=== PATIENT | female | born 1960 | race Caucasian/White ===

== ENCOUNTER 2018-03-21 16:37 | Outpatient (CLI) | payer OTHER, MEDICARE ==
--- NOTE | 2018-03-21 23:52 | XRAY Report ---
Reason: ASTHMA,CHRONIC OBSTRUCTIVE NOS Procedure Date: 03/21/2018 Accession Number: [id number] / [id number] Procedure: XR - Chest 2 View X-Ray CPT Code: 70310 FULL RESULT: EXAM: CHEST RADIOGRAPHY EXAM DATE: 03/21/2018 05:03 PM. CLINICAL HISTORY: ASTHMA,CHRONIC OBSTRUCTIVE NOS. COMPARISON: None. TECHNIQUE: 2 views. FINDINGS: Lungs/Pleura: No focal opacities evident. No pleural effusion. No pneumothorax. Normal volumes. Mediastinum: Heart and mediastinal contours are unremarkable. Other: Thoracolumbar hardware. Left shoulder hardware. Cervical spine hardware. IMPRESSION: No acute cardiopulmonary disease seen. RADIA
== END 2018-03-21 16:38 | disposition home or self-care (01) ==
LOC: DI 16:37
PROVIDERS: ATTEND Registered Nurse
DX: J44.9 Chronic obstructive pulmonary disease, unspecified (principal)
CPT/HCPCS: 71046

== ENCOUNTER 2018-05-11 13:18 | Outpatient (CLI) | payer OTHER, MEDICARE | END 2018-05-11 13:19 | disposition home or self-care (01) | LOC: RT 13:18 | PROVIDERS: ATTEND Registered Nurse | DX: J45.901 Unspecified asthma with (acute) exacerbation (principal) | CPT/HCPCS: 94010; 94664 ==

== ENCOUNTER 2018-06-12 16:55 | Emergency (ER) | payer OTHER, MEDICARE ==
[2018-06-12] MEDS ORDERED: predniSONE 20 MG TABLET PO STA (17:38)
[2018-06-12] MEDS ORDERED: IPRATROPIUM/ALBUTEROL 3 ML NEB INH STA (17:38)
--- NOTE | 2018-06-12 17:43 | ED Physician Documentation ---
PD HPI URI - Stated complaint Stated Complaint: SOA/WHEEZING - Chief complaint Chief Complaint: Resp - History obtained from History obtained from: Patient - History of Present Illness Timing details: Gradual onset Pain level max: 0 Pain level now: 0 Associated symptoms: Nasal congestion, Rhinorrhea, Dry cough, Dyspnea (Wheezin g). No: Fever, Chills Contributing factors: COPD / asthma Improves by: Rest, MDI/nebulizer Worsened by: Activity, Breathing Similar symptoms before: Other (States diagnosed with bronchitis and improved with antibiotics) - Additional information Additional information: 57-year-old female states she had a cough for approximately 3 months, improved for a week and now the cough has returned. Review of Systems Constitutional: denies: Fever Throat: denies: Sore throat Cardiac: denies: Chest pain / pressure Respiratory: reports: Cough, Wheezing GI: denies: Vomiting : denies: Dysuria Skin: denies: Rash Musculoskeletal: denies: Neck pain, Back pain Neurologic: denies: Headache PD PAST MEDICAL HISTORY - Past Medical History Past Medical History: Yes Cardiovascular: Hypertension Respiratory: Asthma - Present Medications Home Medications: Ambulatory Orders Medication Instructions Recorded Confirmed Albuterol Sulf [Ventolin Hfa 1 - 2 puffs INH Q4HR PRN 06/12/18 06/12/18 Inhaler] Albuterol Sulf [Ventolin Hfa 1 - 2 puffs INH Q4HR PRN #1 inhaler 06/12/18 Inhaler] Benzonatate [Tessalon Perle] 100 - 200 mg PO TID PRN #30 capsule 06/12/18 Budesonide [Pulmicort] 1 puffs INH BID 06/12/18 06/12/18 Bupropion HCl [Wellbutrin Xl] 450 mg PO DAILY 06/12/18 06/12/18 Metoprolol Succinate 50 mg PO DAILY 06/12/18 06/12/18 Prazosin [Minipress] 1 mg PO DAILY 06/12/18 06/12/18 predniSONE [Deltasone] 10 mg PO [id number] #42 tab 06/12/18 - Allergies Allergies/Adverse Reactions: Allergies Allergy/AdvReac Type Severity Reaction Status Date / Time No Known Drug Allergies Allergy Verified 06/12/18 16:58 - Living Situation Living Situation: reports: With family Living Arrangement: reports: At home - Social History Does the pt smoke?: No Does the pt have substance abuse?: No - Family History Family history: reports: Non contributory PD ED PE NORMAL - Vitals Vital signs reviewed: Yes - General General: Alert and oriented X 3, No acute distress - HEENT HEENT: Ears normal, Moist mucous membranes, Pharynx benign - Neck Neck: Supple, no meningeal sign - Cardiac Cardiac: RRR - Respiratory Respiratory: No respiratory distress, Other (wheezing B) - Abdomen Abdomen: Soft, Non tender, Non distended - Derm Derm: Warm and dry - Extremities Extremities: No edema - Neuro Neuro: Alert and oriented X 3 Results - Vitals Vitals: Vital Signs - 24 hr 06/12/18 06/12/18 06/12/18 16:56 17:59 18:27 Temperature 35.8 C L 37 C Heart Rate 67 74 63 Respiratory 20 18 20 Rate Blood Pressure 185/101 H 167/97 H O2 Saturation 99 97 Oxygen O2 Source Room air - Rads (name of study) cxr Radiology: Prelim report reviewed, EMP read contemporaneously, See rad report (No acute intrathoracic abnormality) PD MEDICAL DECISION MAKING - ED course Complexity details: reviewed results, re-evaluated patient, considered differential, d/w patient ED course: 57-year-old female with what appears to be a viral URI with asthma exacerbation. Will place on steroid taper and albuterol for home. She is well-appearing, nontoxic. Afebrile. No respiratory distress. Patient counseled regarding signs and symptoms for which I believe and urgent re-evaluation would be necessary. Patient with good understanding of and agreement to plan and is comfortable going home at this time This document was made in part using voice recognition software. While efforts are made to proofread this document, sound alike and grammatical errors may occur. Departure - Departure Disposition: Home, Self Care Clinical Impression: Viral URI with cough Condition: Good Instructions: ED Viral Syndrome Follow-Up: Sophia Schmidt ARNP [Primary Care Provider] - Within 1 week Prescriptions: Albuterol Sulf [Ventolin Hfa Inhaler] 1 - 2 puffs INH Q4HR PRN #1 inhaler PRN Reason: Shortness Of Air/Wheezing Benzonatate [Tessalon Perle] 100 - 200 mg PO TID PRN #30 capsule PRN Reason: Cough predniSONE [Deltasone] 10 mg PO [id number] #42 tab Comments: Take the medications as prescribed. Return if you worsen. Follow-up with your doctor for further evaluation and care. Forms: Activity restrictions Discharge Date/Time: 06/12/18 18:34
--- NOTE | 2018-06-12 18:16 | XRAY Report ---
Reason: cough x 3 months Procedure Date: 06/12/2018 Accession Number: [id number] / [id number] Procedure: XR - Chest 2 View X-Ray CPT Code: 07879 FULL RESULT: EXAM: CHEST RADIOGRAPHY EXAM DATE: 06/12/2018 05:57 PM. CLINICAL HISTORY: Cough x 3 months. COMPARISON: CHEST 2 VIEW 03/21/2018 4:55 PM. TECHNIQUE: 2 views. FINDINGS: Lungs/Pleura: No focal opacities evident. No pleural effusion. No pneumothorax. Normal volumes. Mediastinum: Heart and mediastinal contours are unremarkable. Other: Thoracolumbar fusion hardware is in place. IMPRESSION: No acute intrathoracic plain film abnormality. RADIA
[2018-06-12 18:30] VITALS: BP 167/97
== END 2018-06-12 18:34 | disposition home or self-care (01) ==
LOC: ED 16:55
DX: J45.901 Unspecified asthma with (acute) exacerbation (principal); J06.9 Acute upper respiratory infection, unspecified; I10 Essential (primary) hypertension
CPT/HCPCS: 71046; 94640; 99283; J7512

== ENCOUNTER 2018-09-26 14:43 | Outpatient (CLI) | payer OTHER, MEDICARE | END 2018-09-26 14:44 | disposition home or self-care (01) | LOC: RT 14:43 | PROVIDERS: ATTEND Internal Medicine Cardiovascular Disease | DX: I25.10 Atherosclerotic heart disease of native coronary artery without angina pectoris (principal); R07.9 Chest pain, unspecified | CPT/HCPCS: 93005 ==

== ENCOUNTER 2019-04-23 17:56 | Outpatient (CLI) | payer OTHER ==
--- NOTE | 2019-04-24 10:37 | Ultrasound Report ---
Reason: POSTMENOPAUSAL BLEEDING Procedure Date: 04/23/2019 Accession Number: [id number] / [id number] Procedure: US - Pelvic w/Transvaginal CPT Code: Final Report FULL RESULT: EXAM: PELVIC ULTRASOUND EXAM DATE: 04/23/2019 07:00 PM. CLINICAL HISTORY: Postmenopausal bleeding. COMPARISON: None. TECHNIQUE: Realtime transabdominal pelvic scan performed to identify the uterus and adnexa and as an overview of other pelvic structures, followed by transvaginal scan to provide greater detail of the uterus and adnexa, with static image documentation. FINDINGS: Uterus: 5.4 x 2.9 x 4.2 cm, volume 35 cc. Anteverted position. Normal overall size and echotexture. Masses: None. Endometrium: 5 mm. Normal. Cervix: Unremarkable. Right Ovary: 1.6 x 0.9 x 1.6 cm, volume 1.2 cc. Limited visualization as the ovary is seen only transabdominally. Within these limitations, appearance is normal. Left Ovary: 1.7 x 0.8 x 1.8 cm, volume 1.3 cc. Limited transabdominal only visualization, within these limits normal. Free Fluid: None. Other: None. IMPRESSION: Endometrial thickness is within upper limits of normal for the postmenopausal state. No definite abnormal vascularity is detected within the endometrium. RADIA
== END 2019-04-23 17:57 | disposition home or self-care (01) ==
LOC: DI 17:56
PROVIDERS: ATTEND Obstetrics & Gynecology
DX: N95.0 Postmenopausal bleeding (principal)
CPT/HCPCS: 76830; 76856

== ENCOUNTER 2019-05-16 11:08 | Outpatient (CLI) | payer OTHER | END 2019-05-16 11:09 | disposition home or self-care (01) | LOC: RT 11:08 | PROVIDERS: ATTEND Internal Medicine Gastroenterology | DX: I10 Essential (primary) hypertension (principal); E66.9 Obesity, unspecified; I25.10 Atherosclerotic heart disease of native coronary artery without angina pectoris; Z68.34 Body mass index [BMI] 34.0-34.9, adult | CPT/HCPCS: 93005 ==

== ENCOUNTER 2019-07-28 12:19 | Outpatient (CLI) | payer OTHER ==
[2019-07-28] MEDS ORDERED: IOTHALAMATE MEGLUMINE 50 ML VIAL ONE (12:25)
[2019-07-28] MEDS ORDERED: BUFFERED LIDOCAINE 10 ML SYRINGE ONE (12:25)
[2019-07-28] MEDS ORDERED: BUPIVACAINE 0.5% PF 10 ML VIAL IM ONE (13:34)
[2019-07-28] MEDS ORDERED: methylPREDNISolone ACETATE 80 MG/ML VIAL IM ONE (13:34)
[2019-07-28] MEDS ORDERED: IOTHALAMATE MEGLUMINE 50 ML VIAL IVP ONE (13:34)
[2019-07-28] MEDS ORDERED: BUFFERED LIDOCAINE 10 ML SYRINGE IU ONE (13:34)
--- NOTE | 2019-07-28 13:55 | XRAY Report ---
Reason: ADHESIVE CAPSULITIS OF LT SHLDR Procedure Date: 07/28/2019 Accession Number: [id number] / [id number] Procedure: FL - Inj/Aspiration Major Joint CPT Code: Final Report FULL RESULT: EXAM: LEFT SHOULDER Injection with Fluoroscopic Guidance EXAM DATE: 07/28/2019 01:31 PM. CLINICAL HISTORY: ADHESIVE CAPSULITIS OF LT SHLDR. COMPARISON: None. TECHNIQUE: The risks, benefits, and alternatives of the procedure were discussed with the patient. All questions were answered. Written and verbal consent were obtained. The left glenohumeral joint was marked under fluoroscopy and prepped and draped in a sterile manner. Local anesthesia was performed with 1% lidocaine. A 22-gauge needle was then inserted into the joint. Needle placement in the joint space was confirmed with injection of 2 mL of iodinated contrast. A solution containing 4 mL 0.5% ropivacaine, 4 mL 1% lidocaine, and 1 mL (80 mg/mL) Depo-Medrol was then injected. The needle was removed without immediate complication. Other: None. Fluoroscopy Time: 38 seconds. Number of fluoroscopy images: 2. FINDINGS: Bones and joints: No fracture or subluxation. Postsurgical changes consistent with prior labral repair. Injection: Fluoroscopic images demonstrate needle placement and contrast in the left glenohumeral joint. IMPRESSION: Successful fluoroscopically guided injection of anesthetic and steroid in the left glenohumeral joint with significant decrease of the patients pain. RADIA
== END 2019-07-28 12:20 | disposition home or self-care (01) ==
LOC: DI 12:19
PROVIDERS: ATTEND Orthopaedic Surgery Sports Medicine
DX: M75.02 Adhesive capsulitis of left shoulder (principal); M19.012 Primary osteoarthritis, left shoulder
CPT/HCPCS: 20610; Q9961

== ENCOUNTER 2019-09-09 10:21 | Outpatient (CLI) | payer OTHER ==
--- NOTE | 2019-09-10 09:29 | MRI Report ---
Reason: LOW BACK PAIN Procedure Date: 09/09/2019 Accession Number: [id number] / [id number] Procedure: MRI - Lumbar Spine W/O CPT Code: Final Report FULL RESULT: EXAM: MRI LUMBAR SPINE WITHOUT CONTRAST EXAM DATE: 09/09/2019 10:48 AM. CLINICAL HISTORY: Low back pain. COMPARISON: None. TECHNIQUE: Multiplanar, multisequence T1-weighted and fluid-sensitive sequences of the lumbar spine from T12 to S1 without contrast. Other: None. FINDINGS: Spinal Canal: The conus terminates at L1. The conus medullaris and cauda equina are unremarkable. Alignment: Slight reversal of lordosis in the mid to upper lumbar spine. 4 mm posterior subluxation L4 on L5. 5 mm anterior subluxation L5 on S1. Bone Marrow: Five dec-bly-gbyvwhr lumbar vertebral bodies are assumed. No acute fracture identified. There is hardware artifact from what appears to be left lateral vertebral body fusion extending from T12-L4. There appears to be solid osseous fusion of the T12-L4 vertebral bodies. Disk Levels/Facets: T10-T11: Small right paracentral protrusion and mild facet arthropathy. Mild effacement of the thecal sac. Mild right foraminal narrowing. T11-T12: Moderate facet arthropathy. Mild bilateral foraminal narrowing. No central canal stenosis. T12-L1: Fused. No significant stenosis. L1-L2: Fused. No significant stenosis. L2-L3: Fused. No significant stenosis. L3-L4: Fused. No significant stenosis. L4-L5: Retrolisthesis. Mild disk height loss and disk dehydration. Annular disk bulge. Severe degenerative facet arthropathy with ligamentum flavum buckling. Severe central canal stenosis. Severe right and moderate to severe left foraminal stenosis. L5-S1: Grade 1 spondylolisthesis. Severe degenerative facet arthropathy. Annular disk bulge. Annular fissure. Mild central canal stenosis. Mild bilateral foraminal stenosis. Musculature: Mild atrophy of the lower paraspinous musculature. Other: 2 subcentimeter probable left renal cysts. IMPRESSION: 1. L4-L5 severe central canal stenosis. Severe right and moderate to severe left foraminal stenosis. 2. L5-S1 mild bilateral foraminal stenosis. 3. Previous left lateral vertebral body instrumented fusion from T12-L4. Comment: The following findings are so common in adults without low back pain that while we report their presence, they must be interpreted with caution and in the context of the clinical situation. (Reference Michaelk et al, Spine 2001) Prevalence of findings in patients without low back pain: Disk degeneration (any evidence): 92% Disk desiccation/T2 signal loss: 83% Disk height loss: 56% Disk bulge: 64% Disk protrusion: 32% Annular tear/high intensity zone: 38% RADIA
== END 2019-09-09 10:22 | disposition home or self-care (01) ==
LOC: DI 10:21
PROVIDERS: ATTEND Physician Assistant Medical
DX: M51.24 Other intervertebral disc displacement, thoracic region (principal); M47.814 Spondylosis without myelopathy or radiculopathy, thoracic region; M51.36 Other intervertebral disc degeneration, lumbar region; M51.37 Other intervertebral disc degeneration, lumbosacral region; M48.061 Spinal stenosis, lumbar region without neurogenic claudication; M48.07 Spinal stenosis, lumbosacral region; M43.17 Spondylolisthesis, lumbosacral region; M43.16 Spondylolisthesis, lumbar region; M47.817 Spondylosis without myelopathy or radiculopathy, lumbosacral region; M47.816 Spondylosis without myelopathy or radiculopathy, lumbar region
CPT/HCPCS: 72148

== ENCOUNTER 2020-09-26 17:01 | Outpatient (CLI) | payer MEDICARE, MEDICAID | END 2020-09-26 17:02 | disposition critical access hospital (66) | LOC: EMS 17:01 | DX: R20.2 Paresthesia of skin (principal); R42 Dizziness and giddiness; R11.0 Nausea; M54.2 Cervicalgia | CPT/HCPCS: A0425; A0427 ==

== ENCOUNTER 2020-09-26 17:28 | Emergency (ER) | payer MEDICARE, MEDICAID ==
[2020-09-26] MEDS ORDERED: SODIUM CHLORIDE 0.9% 1,000 ML IV STA (18:27)
--- NOTE | 2020-09-26 18:30 | ED Physician Documentation ---
History of Present Illness - Stated complaint Stated Complaint: NECK PX - Chief complaint Chief Complaint: General - History obtained from History obtained from: Patient, EMS - History of Present Illness Timing: Today Pain level max: 0 Pain level now: 0 - Additonal information Additional information: Patient is a 60-year-old female on Adderall and has a history of anxiety as well. She states that she drank a rockstar energy drink this morning followed by several cups of coffee. While she was out in the sun and started to feel shaky and had tingling in her lips, bilateral arms hands and feet. Resolved when EMS arrived. No chest pain. No shortness of breath. Nothing makes it better or worse. Review of Systems Ten Systems: 10 systems reviewed and negative Constitutional: denies: Fever, Chills Nose: denies: Rhinorrhea / runny nose, Congestion Throat: denies: Sore throat Cardiac: reports: Palpitations. denies: Chest pain / pressure Respiratory: denies: Dyspnea, Cough, Wheezing GI: denies: Abdominal Pain, Nausea, Vomiting, Diarrhea : denies: Now EGA Skin: denies: Rash Musculoskeletal: reports: Neck pain (chronic, none now). denies: Back pain Neurologic: denies: Headache, Head injury PD PAST MEDICAL HISTORY - Past Medical History Past Medical History: Yes Cardiovascular: Hypertension, Arrhythmia Respiratory: Asthma, Sleep apnea Neuro: None Endocrine/Autoimmune: None GI: Ulcers, Chronic constipation, Diverticulitis, Other RECEIVER BULK SYSTEM: None : None HEENT: None Psych: Depression, Anxiety Musculoskeletal: Osteoarthritis, Scoliosis, Chronic back pain Derm: None Other Past Medical History: right shoulder rotator cuff repair,. left shoulder with labrium. C6-7 fused. T12-L4 fused. right carpal tunnel. right radial fx. right knee replacement. left with arthroscopy. tubal ligation. - Past Surgical History Past Surgical History: Yes General: Colonoscopy, Other Ortho: Knee replacement, Arthroscopic surgery, Carpal Tunnel surgery, Spine surgery, Other /RECEIVER BULK SYSTEM: Tubal ligation - Present Medications Home Medications: Ambulatory Orders Medication Instructions Recorded Confirmed Albuterol Sulf [Ventolin Hfa 1 - 2 puffs INH Q4HR PRN 06/12/18 09/26/20 Inhaler] Albuterol Sulf [Ventolin Hfa 1 - 2 puffs INH Q4HR PRN #1 inhaler 06/12/18 09/26/20 Inhaler] Prazosin [Minipress] 1 mg PO DAILY 06/12/18 09/26/20 Dextroamphetamine/Amphetamine 30 mg PO DAILY 05/09/19 09/26/20 [Adderall 15 mg Tablet] Losartan/Hydrochlorothiazide 1 tab PO DAILY 09/26/20 09/26/20 [Losartan-Hctz 100-12.5 mg Tab] Potassium Chloride [K-Dur] 20 meq PO BIDWM #6 tablet 09/26/20 - Allergies Allergies/Adverse Reactions: Allergies Allergy/AdvReac Type Severity Reaction Status Date / Time No Known Drug Allergies Allergy Verified 09/26/20 17:49 - Social History Does the pt smoke?: No Smoking Status: Never smoker Does the pt drink ETOH?: Yes Does the pt have substance abuse?: No - Immunizations Immunizations are current?: Yes - POLST Patient has POLST: No PD ED PE NORMAL - Vitals Vital signs reviewed: Yes - General General: Alert and oriented X 3, No acute distress - HEENT HEENT: Moist mucous membranes - Neck Neck: Supple, no meningeal sign - Cardiac Cardiac: RRR, Strong equal pulses - Respiratory Respiratory: No respiratory distress, Clear bilaterally - Abdomen Abdomen: Soft, Non tender, Non distended - Back Back: No spinal TTP - Derm Derm: Warm and dry, No rash - Extremities Extremities: No edema, No calf tenderness / cord - Neuro Neuro: Alert and oriented X 3 - Psych Psych: Normal mood, Normal affect Results - Vitals Vitals: Vital Signs - 24 hr 09/26/20 09/26/20 09/26/20 17:30 17:43 18:37 Temperature 36.1 C L Heart Rate 79 77 77 Respiratory 19 20 16 Rate Blood Pressure 131/113 H 148/108 H 138/95 H O2 Saturation 100 100 97 Oxygen O2 Source Room air - EKG (time done) 1839 Rate: Rate (enter#) (69) Rhythm: NSR [place]: Normal Intervals: Normal PA QRS: Normal Ischemia: Normal ST segments, Q waves (III, aVF) - Labs Labs: Laboratory Tests 09/26/20 09/26/20 18:47 18:47 WBC 6.4 RBC 4.77 Hgb 14.8 Hct 43.6 MCV 91.4 MCH 31.0 MCHC 33.9 RDW 12.0 Plt Count 185 MPV 9.0 Neut # (Auto) 3.4 Lymph # (Auto) 2.2 Bryan # (Auto) 0.7 Eos # (Auto) 0.1 Baso # (Auto) 0.0 Absolute Nucleated RBC 0.00 Nucleated RBC % 0.0 Sodium 137 Potassium 2.8 L Chloride 96 L Carbon Dioxide 27 Anion Gap 14.0 H BUN 17 Creatinine 0.6 Estimated GFR (MDRD) 101 Glucose 97 Calcium 8.8 Phosphorus 2.5 Magnesium 2.2 Total Bilirubin 0.9 AST 27 ALT 35 Alkaline Phosphatase 37 L Total Protein 7.0 Albumin 4.5 Globulin 2.5 Albumin/Globulin Ratio 1.8 PD MEDICAL DECISION MAKING - ED course Complexity details: reviewed results, re-evaluated patient, considered differential, d/w patient ED course: Symptoms resolved in the emergency department. Patient feels much better. Likely a reaction to the caffeine that she ingested earlier today. Also mildly hypokalemic. Given potassium here and will place on potassium for a few days for home. This can be rechecked with her doctor. NIH stroke scale of 0. No focal neurological deficits. Patient is well-appearing, nontoxic. Afebrile. Ambulating without difficulty. Patient counseled regarding signs and symptoms for which I believe and urgent re-evaluation would be necessary. Patient with good understanding of and agreement to plan and is comfortable going home at this time This document was made in part using voice recognition software. While efforts are made to proofread this document, sound alike and grammatical errors may occur. Departure - Departure Disposition: 01 Home, Self Care Clinical Impression: Hypokalemia Caffeine intoxication Qualifiers: Complication of substance-induced condition: uncomplicated Qualified Code(s): F15.920 - Other stimulant use, unspecified with intoxication, uncomplicated Condition: Good Instructions: ED Potassium Deficiency Follow-Up: ANA SHEPHERD PA-C [Primary Care Provider] - Within 1 week Prescriptions: Potassium Chloride [K-Dur] 20 meq PO BIDWM #6 tablet Comments: Your potassium is low today. You should have your potassium level rechecked in 3 to 4 days with your doctor. Return if you worsen. Monitor your caffeine consumption at home as well. Discharge Date/Time: 09/26/20 19:51
[2020-09-26 18:38] VITALS: BP 138/95
[2020-09-26 18:52] LABS: BASOPHILS % (AUTO) 0.3 %; EOSINOPHILS # (AUTO) 0.1 10^3/uL (0.0-0.7); EOSINOPHILS % (AUTO) 1.1 %; HCT - HEMATOCRIT 43.6 % (37.0-47.0); HGB - HEMOGLOBIN 14.8 g/dL (12.0-16.0); LYMPHOCYTES # (AUTO) 2.2 10^3/uL (1.5-3.5); LYMPHOCYTES % (AUTO) 34.5 %; MEAN CORPUSCULAR HGB CONC 33.9 g/dL (32.0-36.0); MEAN CORPUSCULAR VOLUME 91.4 fL (81.0-99.0); MONOCYTES # (AUTO) 0.7 10^3/uL (0.0-1.0); MONOCYTES % (AUTO) 10.8 %; NEUTROPHILS # (AUTO) 3.4 10^3/uL (1.5-6.6); NEUTROPHILS % (AUTO) 53.1 %; PLT - PLATELET COUNT 185 10^3/uL (130-450); RED BLOOD COUNT 4.77 10^6/uL (4.20-5.40); WHITE BLOOD COUNT 6.4 x10^3/uL (4.8-10.8)
[2020-09-26 19:07] LABS: ALBUMIN 4.5 g/dL (3.2-5.5); ALBUMIN/GLOBULIN RATIO 1.8 (1.0-2.2); BILIRUBIN,TOTAL 0.9 mg/dL (0.2-1.0); CALCIUM 8.8 mg/dL (8.5-10.3); CREATININE 0.6 mg/dL (0.4-1.0); MAGNESIUM 2.2 mg/dL (1.7-2.8); PHOSPHORUS 2.5 mg/dL (2.5-4.6); POTASSIUM 2.8 mmol/L (3.5-5.0)
[2020-09-26] MEDS ORDERED: POTASSIUM CHLORIDE 20 MEQ TABLET PO STA (19:13)
== END 2020-09-26 19:51 | disposition home or self-care (01) ==
LOC: EDUNIT# → ED 17:28
DX: F15.920 Other stimulant use, unspecified with intoxication, uncomplicated (principal); E87.6 Hypokalemia; I10 Essential (primary) hypertension
CPT/HCPCS: 36415; 80053; 83735; 84100; 85025; 93005; 96360; 99284; A9270

== ENCOUNTER 2020-11-22 12:50 | Outpatient (CLI) | payer MEDICARE, MEDICAID | END 2020-11-22 12:51 | disposition home or self-care (01) | LOC: LAB.S 12:50 | PROVIDERS: ATTEND Physician Assistant | DX: Z01.812 Encounter for preprocedural laboratory examination (principal); E87.6 Hypokalemia; E66.9 Obesity, unspecified; I25.10 Atherosclerotic heart disease of native coronary artery without angina pectoris; L71.9 Rosacea, unspecified; F41.9 Anxiety disorder, unspecified; F90.9 Attention-deficit hyperactivity disorder, unspecified type; F43.10 Post-traumatic stress disorder, unspecified; I10 Essential (primary) hypertension; F32.9 Major depressive disorder, single episode, unspecified; F51.04 Psychophysiologic insomnia | CPT/HCPCS: 82985; 87640 ==

== ENCOUNTER 2021-01-07 09:04 | Day surgery (SDC) | payer MEDICARE, MEDICAID ==
[2021-01-07] MEDS ORDERED: LACTATED RINGERS 1,000 ML IV ONE ×2 (09:15→11:26)
--- NOTE | 2021-01-07 09:53 | ANESTHESIA ---
Pre-Anesthesia VS, & Labs - Diagnosis hx of colon polyps - Procedure colonoscopy Vital Signs: Temp Pulse Resp BP Pulse Ox 36.2 C L 70 19 168/109 H 99 01/07/21 09:16 01/07/21 09:16 01/07/21 09:16 01/07/21 09:16 01/07/21 09:16 Height: 5 ft 6 in Weight (kg): 88.9 kg Body Mass Index: 31.6 BMI Classification: Obese - NPO >8 hours - Is Patient ?: No - Lab Results Lab results reviewed: Yes Home Medications and Allergies Home Medications: Ambulatory Orders Cyclobenzaprine [Flexeril] 10 mg PO TID PRN 01/05/21 Duloxetine HCl [Cymbalta] 90 mg PO DAILY 01/05/21 Fluticasone Propionate [Flovent Diskus] 2 inh IH BID 01/05/21 Lidocaine Patch 5% [Lidoderm Patch] 1 - 3 each TOP DAILY 01/05/21 Minocycline HCl 100 mg PO DAILY 01/05/21 Nystatin [Mycostatin] 5 ml PO QID 01/05/21 metroNIDAZOLE 0.75% GEL [Flagyl Gel] 1 applic TOP BID 01/05/21 Diclofenac Sodium [Voltaren Arthritis Pain] TOP PRN 01/06/21 Prazosin [Minipress] 1 mg PO DAILY 06/12/18 Dextroamphetamine/Amphetamine [Adderall 15 mg Tablet] 30 mg PO DAILY 05/09/19 Losartan/Hydrochlorothiazide [Losartan-Hctz 100-12.5 mg Tab] 1 tab PO DAILY 09/26/20 Cyclobenzaprine [Flexeril] 10 mg PO TID PRN 01/05/21 Duloxetine HCl [Cymbalta] 90 mg PO DAILY 01/05/21 Fluticasone Propionate [Flovent Diskus] 2 inh IH BID 01/05/21 Lidocaine Patch 5% [Lidoderm Patch] 1 - 3 each TOP DAILY 01/05/21 Minocycline HCl 100 mg PO DAILY 01/05/21 Nystatin [Mycostatin] 5 ml PO QID 01/05/21 metroNIDAZOLE 0.75% GEL [Flagyl Gel] 1 applic TOP BID 01/05/21 Diclofenac Sodium [Voltaren Arthritis Pain] TOP PRN 01/06/21 Allergies/Adverse Reactions: Allergies Allergy/AdvReac Type Severity Reaction Status Date / Time No Known Drug Allergies Allergy Verified 01/06/21 13:40 Anes History & Medical History - Anesthetic History Anesthesia Complications: reports: No previous complications Family history of Anesthesia Complications: Denies Family history of Malignant Hyperthermia: Denies - Medical History Cardiovascular: reports: Hypertension, [place], Arrhythmia Pulmonary: reports: Asthma, Sleep apnea Gastrointestinal: reports: GERD, Ulcers, Colon polyps, Chronic constipation, Ot her Urinary: reports: Retention Neuro: reports: None Musculoskeletal: reports: Osteoarthritis, Scoliosis, Chronic back pain, Other (left shoulder pain) Endocrine/Autoimmune: reports: None Blood Disorders: reports: None Skin: reports: Rosacea Smoking Status: Never smoker - Surgical History General: reports: Colonoscopy, Other Gynecologic: reports: Tubal ligation Orthopedic: reports: Knee replacement, Arthroscopic surgery, Carpal Tunnel surgery, Spine surgery, Other Exam General: Alert, Oriented x3, Cooperative, No acute distress Dental: WNL Mouth Openin Fingerbreadth Neck Mobility: Normal Mallampati classification: II Respiratory: Lungs clear, Normal breath sounds, No respiratory distress, No accessory muscle use Cardiovascular: Regular rate, Normal S1, Normal S2, No murmurs Plan Anesthesia Type: General, Total IV Consent for Procedure(s) Verified and Reviewed: Yes Code Status: Attempt Resuscitation ASA classification: 3-Severe systemic disease Is this case an emergency?: No
[2021-01-07] MEDS ORDERED: MIDAZOLAM 2 MG/2 ML VIAL ONE (09:55)
[2021-01-07] MEDS ORDERED: PROPOFOL 1000 MG/100 ML 1,000 MG/100 ML BOTTLE IV ONE (09:58)
[2021-01-07] MEDS ORDERED: fentaNYL 100 MCG/2 ML VIAL ONE (10:02)
--- NOTE | 2021-01-07 10:35 | HISTORY & PHYSICAL EXAMINATION ---
Chief Complaint - Chief Complaint Chief Complaint: Here for colon cancer surveillance History of Present Illness - History Obtained From Records Reviewed: yes History obtained from: pt Exam Limitations: none - History of Present Illness HPI Comment/Other: Distant history over 10 years ago of colonoscopy and removal polyps. She is here for colon cancer surveillance. 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 : reports: Retention HEENT: reports: Chronic vision loss Psych: reports: Depression, Anxiety, Panic attacks, ADD/ADHD, Post traumatic stress disorder, Claustrophobia Musculoskeletal: reports: Osteoarthritis, Scoliosis, Chronic back pain, Other (left shoulder pain) Derm: reports: Rosacea MRSA Hx?: No - Past Surgical History General: reports: Colonoscopy, Other Ortho: reports: Knee replacement, Arthroscopic surgery, Carpal Tunnel surgery, Spine surgery, Other /BLANKET WINDER OPERATOR: reports: Tubal ligation - POLST Patient has POLST: No Meds/Allgy - Home Medications Home Medications: Ambulatory Orders Medication Instructions Recorded Confirmed Albuterol Sulf [Ventolin Hfa 1 - 2 puffs INH Q4HR PRN #1 inhaler 06/12/18 01/06/21 Inhaler] Prazosin [Minipress] 1 mg PO DAILY 06/12/18 01/06/21 Dextroamphetamine/Amphetamine 30 mg PO DAILY 05/09/19 01/06/21 [Adderall 15 mg Tablet] Losartan/Hydrochlorothiazide 1 tab PO DAILY 09/26/20 01/06/21 [Losartan-Hctz 100-12.5 mg Tab] Cyclobenzaprine [Flexeril] 10 mg PO TID PRN 01/05/21 01/06/21 Duloxetine HCl [Cymbalta] 90 mg PO DAILY 01/05/21 01/06/21 Fluticasone Propionate [Flovent 2 inh IH BID 01/05/21 01/07/21 Diskus] Lidocaine Patch 5% [Lidoderm Patch] 1 - 3 each TOP DAILY 01/05/21 01/06/21 Minocycline HCl 100 mg PO DAILY 01/05/21 01/06/21 Nystatin [Mycostatin] 5 ml PO QID 01/05/21 01/06/21 metroNIDAZOLE 0.75% GEL [Flagyl 1 applic TOP BID 01/05/21 01/06/21 Gel] Diclofenac Sodium [Voltaren TOP PRN 01/06/21 Arthritis Pain] - Allergies Allergies/Adverse Reactions: Allergies Allergy/AdvReac Type Severity Reaction Status Date / Time No Known Drug Allergies Allergy Verified 01/06/21 13:40 Review of Systems - Other Findings Other Findings: 10 pt ros as above otherwise unremarkable Exam - Vital Signs Reviewed Vital Signs: Yes Vital Signs: Vital Signs x48h Temp Pulse Resp BP Pulse Ox 01/07/21 09:16 36.2 C L 70 19 168/109 H 99 - Physical Exam General Appearance: positive: No acute distress, Alert Eyes Bilateral: positive: PERRL, EOMI ENT: positive: Pharynx nml, No signs of dehydration Neck: positive: No JVD Respiratory: positive: No respiratory distress, Breath sounds nml Cardiovascular: positive: Regular rate & rhythm Abdomen: positive: Non-tender, No distention Neurologic/Psychiatric: positive: Oriented x3 Conclusion/Plan - Problem List (1) Colon cancer screening Conclusion/Plan: Plan colonoscopy. parq held and consent obtained - Lab Results Lab results reviewed: Yes
--- NOTE | 2021-01-07 11:30 | ANESTHESIA POST OP EVALUATION ---
Anesthesia Post Eval - Post Anesthesia Eval Vitals: Last Vital Signs Temp 36.6 C 01/07/21 11:22 Pulse 80 01/07/21 11:22 Resp 24 01/07/21 11:22 BP 135/91 H 01/07/21 11:29 Pulse Ox 22 L 01/07/21 11:22 CV Function Including HR & BP: Stable Pain Control: Satisfactory Nausea & Vomiting: Negative Mental Status: Baseline Respiratory Status: Airway Patent Hydration Status: Satisfactory Anesthesia Complications: None
[2021-01-07 12:07] VITALS: BP 132/90
== END 2021-01-07 09:05 | disposition home or self-care (01) ==
LOC: SDS 09:04
PROVIDERS: ATTEND Surgery
PROC: 0DBL8ZZ Excision of Transverse Colon, Via Natural or Artificial Opening Endoscopic (ICD-10-PCS; principal; 2021-01-07 10:15)
DX: Z12.11 Encounter for screening for malignant neoplasm of colon (principal); D12.3 Benign neoplasm of transverse colon; K57.30 Diverticulosis of large intestine without perforation or abscess without bleeding; K64.5 Perianal venous thrombosis; D17.79 Benign lipomatous neoplasm of other sites; E66.9 Obesity, unspecified; Z68.31 Body mass index [BMI] 31.0-31.9, adult; G47.30 Sleep apnea, unspecified; J44.9 Chronic obstructive pulmonary disease, unspecified; M12.9 Arthropathy, unspecified
CPT/HCPCS: 45380; J7120

== ENCOUNTER 2021-01-28 08:00 | Outpatient (CLI) | payer MEDICARE, MEDICAID ==
[2021-01-28 21:08] LABS: BILIRUBIN,URINE NEGATIVE (NEGATIVE); GLUCOSE, URINE (UA) NEGATIVE (NEGATIVE); KETONES,URINE (UA) NEGATIVE (NEGATIVE); LEUKOCYTE ESTERASE, URINE NEGATIVE (NEGATIVE); NITRITE,URINE NEGATIVE (NEGATIVE); OCCULT BLOOD,URINE LARGE (NEGATIVE); PROTEIN,URINE NEGATIVE (NEGATIVE); UROBILINOGEN,URINE 0.2 (NORMAL) E.U./dL (NORMAL)
[2021-01-28 21:13] LABS: CLARITY,URINE CLEAR (CLEAR)
[2021-01-28 21:23] LABS: BACTERIA,URINE None Seen /HPF (None Seen); RBC,URINE TNTC /HPF (0-5); SQUAMOUS EPITHELIAL CELL,UR RARE Squamous (<= Few); WBC,URINE 0-3 /HPF (0-5)
== END 2021-01-28 23:59 | disposition home or self-care (01) ==
LOC: LAB.F 08:00
PROVIDERS: ATTEND Physician Assistant
DX: R30.0 Dysuria (principal)
CPT/HCPCS: 81001; 87086

== ENCOUNTER 2021-02-01 15:07 | Emergency (ER) | payer MEDICARE, MEDICAID ==
[2021-02-01 15:43] LABS: BASOPHILS % (AUTO) 0.7 %; EOSINOPHILS # (AUTO) 0.1 10^3/uL (0.0-0.7); HCT - HEMATOCRIT 45.9 % (37.0-47.0); HGB - HEMOGLOBIN 14.9 g/dL (12.0-16.0); LYMPHOCYTES # (AUTO) 2.3 10^3/uL (1.5-3.5); LYMPHOCYTES % (AUTO) 37.2 %; MEAN CORPUSCULAR HEMOGLOBIN 31.2 pg (27.0-31.0); MEAN CORPUSCULAR HGB CONC 32.5 g/dL (32.0-36.0); MEAN CORPUSCULAR VOLUME 96.2 fL (81.0-99.0); MONOCYTES # (AUTO) 0.6 10^3/uL (0.0-1.0); MONOCYTES % (AUTO) 9.2 %; NEUTROPHILS # (AUTO) 3.1 10^3/uL (1.5-6.6); NEUTROPHILS % (AUTO) 50.7 %; PLT - PLATELET COUNT 223 10^3/uL (130-450); RED BLOOD COUNT 4.77 10^6/uL (4.20-5.40); RED CELL DISTRIBUTION WIDTH 12.9 % (12.0-15.0); WHITE BLOOD COUNT 6.1 x10^3/uL (4.8-10.8)
--- NOTE | 2021-02-01 15:59 | ED Physician Documentation ---
PD HPI ABD PAIN - Stated complaint Stated Complaint: FEMALE - Chief complaint Chief Complaint: Abd Pain - History obtained from History obtained from: Patient - Additional information Additional information: 60-year-old woman developed dysuria and urinary frequency about 5 days ago. Started drinking extra water. Subsequently seen at urgent care and had a urinalysis done showing only hematuria. Now has more right flank pain. 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 : Retention HEENT: Chronic vision loss Psych: Depression, Anxiety, Panic attacks, ADD/ADHD, Post traumatic stress disorder, Claustrophobia Musculoskeletal: Osteoarthritis, Scoliosis, Chronic back pain, Other (left shoulder pain) Derm: Rosacea - Past Surgical History Past Surgical History: Yes General: Colonoscopy, Other Ortho: Knee replacement, Arthroscopic surgery, Carpal Tunnel surgery, Spine surgery, Other /MAIL READER: Tubal ligation - Present Medications Home Medications: Ambulatory Orders Medication Instructions Recorded Confirmed Albuterol Sulf [Ventolin Hfa 1 - 2 puffs INH Q4HR PRN #1 inhaler 06/12/18 Inhaler] Prazosin [Minipress] 1 mg PO DAILY 06/12/18 01/06/21 Dextroamphetamine/Amphetamine 30 mg PO DAILY 05/09/19 01/06/21 [Adderall 15 mg Tablet] Losartan/Hydrochlorothiazide 1 tab PO DAILY 09/26/20 01/06/21 [Losartan-Hctz 100-12.5 mg Tab] Cyclobenzaprine [Flexeril] 10 mg PO TID PRN 01/05/21 01/06/21 Duloxetine HCl [Cymbalta] 90 mg PO DAILY 01/05/21 01/06/21 Fluticasone Propionate [Flovent 2 inh IH BID 01/05/21 01/07/21 Diskus] Lidocaine Patch 5% [Lidoderm Patch] 1 - 3 each TOP DAILY 01/05/21 01/06/21 Minocycline HCl 100 mg PO DAILY 01/05/21 01/06/21 Nystatin [Mycostatin] 5 ml PO QID 01/05/21 01/06/21 metroNIDAZOLE 0.75% GEL [Flagyl 1 applic TOP BID 01/05/21 01/06/21 Gel] Diclofenac Sodium [Voltaren TOP PRN 01/06/21 Arthritis Pain] Nitrofurantoin [Macrobid] 1 cap PO BID #10 cap 02/01/21 Phenazopyridine HCl [Pyridium] 200 mg PO TID PRN #6 tablet 02/01/21 - Allergies Allergies/Adverse Reactions: Allergies Allergy/AdvReac Type Severity Reaction Status Date / Time No Known Drug Allergies Allergy Verified 02/01/21 15:23 - Social History Does the pt smoke?: No Smoking Status: Never smoker Does the pt drink ETOH?: Yes Does the pt have substance abuse?: No - Immunizations Immunizations are current?: Yes - POLST Patient has POLST: No PD ED PE NORMAL - Vitals Vital signs reviewed: Yes - General General: Alert and oriented X 3, No acute distress - Abdomen Abdomen: Normal bowel sounds, Soft, Non tender - Back Back: Other (Very mild right flank tenderness) - Derm Derm: Normal color, Warm and dry - Neuro Neuro: Alert and oriented X 3, Normal speech Results - Vitals Vitals: Vital Signs - 24 hr 02/01/21 02/01/21 15:16 16:02 Temperature 36.5 C 36.4 C L Heart Rate 79 64 Respiratory 16 18 Rate Blood Pressure 136/84 H 163/105 H O2 Saturation 98 99 Oxygen O2 Source Room air - Labs Labs: Laboratory Tests 02/01/21 02/01/21 02/01/21 15:37 15:37 15:45 WBC 6.1 RBC 4.77 Hgb 14.9 Hct 45.9 MCV 96.2 MCH 31.2 H MCHC 32.5 RDW 12.9 Plt Count 223 MPV 9.0 Neut # (Auto) 3.1 Lymph # (Auto) 2.3 [place] # (Auto) 0.6 Eos # (Auto) 0.1 Baso # (Auto) 0.0 Absolute Nucleated RBC 0.00 Nucleated RBC % 0.0 Sodium 140 Potassium 4.4 Chloride 102 Carbon Dioxide 27 Anion Gap 11.0 BUN 15 Creatinine 0.6 Estimated GFR (MDRD) 101 Glucose 101 H Calcium 9.5 Total Bilirubin 0.7 AST 31 ALT 60 Alkaline Phosphatase 44 Total Protein 7.2 Albumin 4.3 Globulin 2.9 Albumin/Globulin Ratio 1.5 Lipase 40 Urine Color YELLOW Urine Clarity CLEAR Urine pH 6.5 Ur Specific [place] 1.020 Urine Protein NEGATIVE Urine Glucose (UA) NEGATIVE Urine Ketones NEGATIVE Urine Occult Blood SMALL H Urine Nitrite NEGATIVE Urine Bilirubin NEGATIVE Urine Urobilinogen 1 (NORMAL) Ur Leukocyte Esterase NEGATIVE Urine RBC 0-5 Urine WBC 0-3 Ur Squamous Epith Cells RARE Squamous Urine Crystals 3-5 Calcium Oxalate Urine Bacteria Rare Ur Microscopic Review INDICATED Urine Culture Comments NOT INDICATED PD MEDICAL DECISION MAKING - ED course ED course: 60-year-old woman with symptoms most consistent with UTI, but only blood in the urine today. CT without evidence of nephrolithiasis or ureterolithiasis. Will treat as cystitis, but discussed close return precautions and need for follow-up if not improved. Departure - Departure Disposition: 01 Home, Self Care Clinical Impression: Cystitis, Flank pain Hematuria Qualifiers: Hematuria type: unspecified type Qualified Code(s): R31.9 - Hematuria, unspecified Condition: Good Record reviewed to determine appropriate education?: Yes Instructions: ED UTI Cystitis Female Prescriptions: Nitrofurantoin [Macrobid] 1 cap PO BID #10 cap Phenazopyridine HCl [Pyridium] 200 mg PO TID PRN #6 tablet PRN Reason: dysuria Comments: Prescription sent electronically to [facility] in [place]. As discussed we are treating this is a bladder infection but your urinalysis only showed blood. If you get better after the antibiotics I still recommend repeating a urinalysis with your physician in a week or 2 to make sure that the blood has cleared. If the blood is persistent or if your symptoms are persistent, talk with your doctor about a referral to a urologist for consideration for cystoscopy or other further work-up. Return if worse.
[2021-02-01 16:00] LABS: ALBUMIN 4.3 g/dL (3.2-5.5); ALBUMIN/GLOBULIN RATIO 1.5 (1.0-2.2); BILIRUBIN,TOTAL 0.7 mg/dL (0.2-1.0); CALCIUM 9.5 mg/dL (8.5-10.3); CREATININE 0.6 mg/dL (0.4-1.0); POTASSIUM 4.4 mmol/L (3.5-5.0); TOTAL PROTEIN 7.2 g/dL (6.7-8.2)
[2021-02-01 16:03] LABS: BILIRUBIN,URINE NEGATIVE (NEGATIVE); GLUCOSE, URINE (UA) NEGATIVE (NEGATIVE); KETONES,URINE (UA) NEGATIVE (NEGATIVE); LEUKOCYTE ESTERASE, URINE NEGATIVE (NEGATIVE); NITRITE,URINE NEGATIVE (NEGATIVE); OCCULT BLOOD,URINE SMALL (NEGATIVE); PH,URINE 6.5 PH (5.0-7.5); PROTEIN,URINE NEGATIVE (NEGATIVE); UROBILINOGEN,URINE 1 (NORMAL) E.U./dL (NORMAL)
[2021-02-01 16:07] LABS: CLARITY,URINE CLEAR (CLEAR)
[2021-02-01 16:13] LABS: BACTERIA,URINE Rare /HPF (None Seen); CRYSTALS,URINE 3-5 Calcium Oxalate /LPF; RBC,URINE 0-5 /HPF (0-5); SQUAMOUS EPITHELIAL CELL,UR RARE Squamous (<= Few); WBC,URINE 0-3 /HPF (0-5)
--- NOTE | 2021-02-01 17:10 | CT Report ---
PROCEDURE: Abdomen/Pelvis WO INDICATIONS: flank pain TECHNIQUE: Noncontrast 5 mm thick sections acquired from the diaphragms to the symphysis. 5 mm coronal and sagi ttal reformats were then performed. For radiation dose reduction, the following was used: automated exposure control, adjustment of mA and/or kV according to patient size. COMPARISON: None. FINDINGS: Image quality: Excellent. Evaluation of the solid organs is limited without IV contrast. ABDOMEN: Lung bases: Basilar atelectasis or scarring. No pleural effusion. Heart size is normal. Solid organs: Liver and spleen are normal in size. Hepatic steatosis. Focal fatty sparing near the g allbladder fossa. Gallbladder is not distended. No calcified gallstones. Pancreas is normal in cont ours. No adrenal nodules. Kidneys are normal in size, without hydronephrosis or nephrolithiasis. Ph leboliths in the pelvis. Peritoneum and bowel: Unenhanced bowel loops demonstrate normal wall thickness and caliber. A few co lonic diverticuli. The appendix is not identified. No free fluid or air. Nodes and vessels: No retroperitoneal or mesenteric adenopathy by size criteria. Aorta and inferior vena cava are normal in caliber. Miscellaneous: No ventral hernias. PELVIS: Genitourinary: Bladder is only partially distended. No bladder stones.. Anteverted uterus. Miscellaneous: No inguinal hernias or adenopathy. Bones: No suspicious bony lesions. No vertebral body compression fractures. T12-L4 left lateral fix ation. There is ankylosis. Beam hardening artifact. DDD most pronounced at L4-L5 and T10-T11. IMPRESSION: 1. No kidney stones. No hydronephrosis. 2. A few colonic diverticuli. No free fluid. 3. Hepatic steatosis. Reviewed by: Raymond Colon MD on 02/01/2021 5:09 PM PDT Approved by: Raymond Colon MD on 02/01/2021 5:09 PM PDT Station ID: [id number]
[2021-02-01] MEDS ORDERED: NITROFURANTOIN MACRO 100 MG CAPSULE PO STA (17:19)
[2021-02-01] MEDS ORDERED: PHENAZOPYRIDINE 100 MG TABLET PO STA (17:19)
[2021-02-01 17:44] VITALS: BP 171/94
== END 2021-02-01 17:44 | disposition home or self-care (01) ==
LOC: ED 15:07
DX: N30.91 Cystitis, unspecified with hematuria (principal); I10 Essential (primary) hypertension
CPT/HCPCS: 36415; 74176; 80053; 81001; 83690; 85025; 99283; 99284; A9270; 81003; 87086

== ENCOUNTER 2022-10-07 08:00 | Outpatient (CLI) | payer MEDICAID, MEDICARE ==
--- NOTE | 2022-10-07 15:23 | XRAY Report ---
PROCEDURE: Tib/Fib RT INDICATIONS: RIGHT LOWER LEG PAIN TECHNIQUE: 2 views of the tibia and fibula were acquired. COMPARISON: None. FINDINGS: Bones: No fractures or dislocations. No suspicious bony lesions. Status post left total knee arth roplasty. No evidence for hardware complication. No osseous erosions or periosteal reaction. Soft tissues: No suspicious soft tissue calcifications or masses. Mild soft tissue swelling of the right lower leg. No soft tissue gas visualized. IMPRESSION: Status post left total knee arthroplasty. No evidence for acute hardware complication. Right tibia/fibula without acute osseous abnormalities. Mild soft tissue swelling of the right lower leg. Reviewed by: Ata Sosa MD on 10/07/2022 3:22 PM PDT Approved by: Ata Sosa MD on 10/07/2022 3:22 PM PDT Station ID: [id number]
--- NOTE | 2022-10-07 19:38 | XRAY Report ---
PROCEDURE: Calcaneus RT INDICATIONS: RIGHT HEEL PAIN TECHNIQUE: Two views of the calcaneus were acquired. COMPARISON: None FINDINGS: Bones: No fractures or dislocations. No suspicious bony lesions. Soft tissues: No suspicious calcifications. Achilles tendon appears normal. No visible soft tissue gas or foreign body. IMPRESSION: No fractures or foreign body. Reviewed by: Kayleigh Morin MD on 10/07/2022 6:37 PM JOHN Approved by: Kayleigh Morin MD on 10/07/2022 6:37 PM JOHN Station ID: [id number]
== END 2022-10-07 23:59 | disposition home or self-care (01) ==
LOC: DI.S 08:00
PROVIDERS: ATTEND Physician Assistant Medical
DX: M79.661 Pain in right lower leg (principal); M79.671 Pain in right foot; Z96.651 Presence of right artificial knee joint

== ENCOUNTER 2023-10-26 11:04 | Outpatient (CLI) | payer OTHER, MEDICARE | END 2023-10-26 23:59 | disposition critical access hospital (66) | LOC: EMS 11:04 | DX: M25.511 Pain in right shoulder (principal); M54.2 Cervicalgia; S60.212A Contusion of left wrist, initial encounter; V43.52XA Car driver injured in collision with other type car in traffic accident, initial encounter; Y92.413 State road as the place of occurrence of the external cause | CPT/HCPCS: A0425; A0429 ==

== ENCOUNTER 2023-10-26 11:20 | Emergency (ER) | payer OTHER, MEDICARE ==
[2023-10-26] MEDS: ONDANSETRON ODT 4 MG TABLET TL STA (12:39)
[2023-10-26] MEDS: IBUPROFEN 800 MG TABLET PO STA (13:11)
[2023-10-26] MEDS: HYDROcod/ACETAM 5/325 MG TABLET PO STA (13:11)
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
[2023-10-26 14:45] VITALS: BP 153/86; O2SAT 100
== END 2023-10-26 14:56 | disposition home or self-care (01) ==
LOC: EDUNIT# → ED 11:20
DX: M54.2 Cervicalgia (principal); M25.532 Pain in left wrist; M25.512 Pain in left shoulder; V43.52XA Car driver injured in collision with other type car in traffic accident, initial encounter; Y92.410 Unspecified street and highway as the place of occurrence of the external cause
CPT/HCPCS: 71045; 72040; 99284; A9270; Q0162